=== PATIENT | female | born 1975 | race Caucasian/White ===

== ENCOUNTER → 2016-10-15 | Outpatient (CLI) | payer BC ==
[~2016-10-15] MED LIST: CARBIDOPA-LEVO1 EAC5 PO; LINZESS145 MCG PO; NORCO 5-325 TA1 EACH PO
== END | disposition home or self-care (01) ==
LOC: RAD.S 13:30
DX: R92.1 Mammographic calcification found on diagnostic imaging of breast (principal); N63 Unspecified lump in breast